=== PATIENT | male | born 2000 | race Caucasian/White ===

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

== ENCOUNTER 2024-07-18 16:46 | Emergency (ER) | payer MEDICAID ==
[~2024-07-18] VITALS: Ht 162.6 cm; Wt 64.0 kg
[~2024-07-18 16:46] MED LIST: SULF5DRO OP
[2024-07-18 16:48] VITALS: BP 135/83; PULSE 79; O2SAT 100
[2024-07-18 18:04] VITALS: RESP 17; TEMP 98.7
== END 2024-07-18 18:11 | disposition home or self-care (01) ==
LOC: ER 16:46
DX: H92.01 Otalgia, right ear (principal); Z79.899 Other long term (current) drug therapy
CPT/HCPCS: 99281